=== PATIENT | male | born 1955 | race Caucasian/White ===

== ENCOUNTER 2019-05-17 06:14 | Day surgery (SDC) | payer BC ==
[2019-05-17] MEDS ORDERED: PROPOFOL 20 ML (07:57)
[2019-05-17] MEDS ORDERED: MIDAZOLAM 1 MG/ML 2 ML INJ (07:57)
[2019-05-17] MEDS ORDERED: FENTAnyl 50 MCG/ML VIAL (07:57)
[2019-05-17] MEDS ORDERED: ETOMIDATE 20 MG INJ (07:58)
[2019-05-17] MEDS ORDERED: LIDOCAINE 4% SOLUTION 50 ML BTL (07:58)
== END 2019-05-17 11:45 | disposition home or self-care (01) ==
LOC: GIL 06:14
DX: Z12.11 Encounter for screening for malignant neoplasm of colon (principal); K29.50 Unspecified chronic gastritis without bleeding; E78.5 Hyperlipidemia, unspecified
CPT/HCPCS: 43239; 88305; 88312